=== PATIENT | female | born 1995 | race Caucasian/White ===

== ENCOUNTER 2023-08-25 13:23 | Emergency (ER) | payer OTHER ==
[~2023-08-25] VITALS: Ht 157.5 cm; Wt 65.8 kg
[2023-08-25 13:35] VITALS: BP 121/70; PULSE 90; RESP 17; TEMP 97.9; O2SAT 98
[2023-08-25] MEDS ORDERED: KETOROLAC 30 MG/ML VIAL IM ONE (14:10)
[2023-08-25] MEDS ORDERED: DEXAMETHASONE 10 MG/ML VIAL IM ONE (14:10)
[2023-08-25] MEDS ORDERED: DICL100G32 TP (14:30)
[2023-08-25] MEDS ORDERED: NAPR-1704 PO (14:30)
== END 2023-08-25 14:51 | disposition home or self-care (01) ==
LOC: MED 13:23
DX: M79.10 Myalgia, unspecified site (principal); L93.0 Discoid lupus erythematosus; Z79.899 Other long term (current) drug therapy
CPT/HCPCS: 81025; 96372; 99284; J1100; J1885